=== PATIENT | female | born 1980 | race Two or more races ===

== ENCOUNTER 2025-04-05 23:29 | Emergency (ER) | payer MEDICAID, OTHER ==
[~2025-04-05] VITALS: Ht 172.7 cm; Wt 82.0 kg
[2025-04-05 23:30] VITALS: BP 145/93; PULSE 90; RESP 18; TEMP 98.1; O2SAT 100
== END 2025-04-06 03:15 | disposition left against medical advice (07) ==
LOC: ER 23:29
DX: M54.50 Low back pain, unspecified (principal); Z79.899 Other long term (current) drug therapy